=== PATIENT | female | born 1965 | race Caucasian/White ===

== ENCOUNTER → 2017-06-25 | Outpatient (CLI) | payer OTHER ==
[2017-06-25 19:16] LABS: LYME DISEASE AB IGG NEG (NEG); LYME DISEASE AB IGM NEG (NEG)
[2017-06-30 17:13] LABS: QUANTIF TB AG-NIL 0.07 IU/ML; QUANTIFERON NIL 0.05 IU/ML
[2017-07-01 05:01] LABS: ANTI-CENTROMERE AB <1.0 NEG AI (<1.0 NEG); ANTI-SS-A <1.0 NEG AI (<1.0 NEG); ANTI-SS-B <1.0 NEG AI (<1.0 NEG); DNA ds CRITHIDIA NEGATIVE (NEGATIVE); MICROSOMAL AB <1 IU/ML (<9); Sm Antibody <1.0 NEG AI (<1.0 NEG)
== END | disposition home or self-care (01) ==
LOC: C.LAB1850 17:00
PROVIDERS: ATTEND Internal Medicine Infectious Disease
DX: R63.4 Abnormal weight loss (principal)

== ENCOUNTER → 2017-06-27 | Outpatient (CLI) | payer OTHER ==
[~2017-06-27] MED LIST: OPTIRAY 320 IV PRN
--- NOTE | 2017-06-27 15:06 | DIAGNOSTIC IMAGING REPORT ---
ABDOMEN AND PELVIS CT WITH IV AND ORAL CONTRAST CT DOSE: 299.91 mGycm HISTORY: R63.4 Abnormal weight lossR10.9 generalized abdominal painR10.2 Pelvic pain TECHNIQUE: Multiaxial CT images of the abdomen and pelvis were performed following the use of intravenous and oral contrast. A dose lowering technique was utilized adhering to the principles of ALARA. COMPARISON STUDY: None. FINDINGS: The lung bases are clear. No suspicious lytic or blastic osseous lesions. The liver, gallbladder, pancreas, spleen, adrenal glands, and kidneys are unremarkable. Hysterectomy. Normal bladder. No bowel wall thickening or obstruction. Normal appendix. No retroperitoneal lymphadenopathy. IMPRESSION: No significant abnormality identified within the abdomen or pelvis. No bowel wall thickening or obstruction. Hysterectomy. Electronically signed by: Neil Pittman M.D. 06/27/2017 3:05 PM Dictated Date/Time: 06/27/2017 2:54 PM
== END | disposition home or self-care (01) ==
LOC: C.CTS 11:59
PROVIDERS: ATTEND Internal Medicine Infectious Disease
DX: R63.4 Abnormal weight loss (principal); R10.2 Pelvic and perineal pain

== ENCOUNTER → 2018-04-06 | Outpatient (CLI) | payer OTHER ==
[2018-04-06 16:02] LABS: FOLLICLE STIMULAT HORMONE 109.68 IU/L
== END | disposition home or self-care (01) ==
LOC: C.LAB1850 14:50
PROVIDERS: ATTEND Obstetrics & Gynecology
DX: N95.1 Menopausal and female climacteric states (principal); R63.5 Abnormal weight gain